=== PATIENT | female | born 1940 | race Caucasian/White ===

== ENCOUNTER → 2018-02-15 12:50 | Outpatient (CLI) | payer MEDICARE, OTHER | END | disposition home or self-care (01) | LOC: D.MAMMO 09:45 | DX: Z12.31 Encounter for screening mammogram for malignant neoplasm of breast (principal) ==

== ENCOUNTER → 2018-03-23 23:44 | Outpatient (CLI) | payer MEDICARE, OTHER | END | disposition home or self-care (01) | LOC: D.MAMMO 03-04 14:30 → D.US 03-05 08:00 → D.MAMMO 10:00 | DX: R92.8 Other abnormal and inconclusive findings on diagnostic imaging of breast (principal) ==

== ENCOUNTER → 2018-08-10 13:16 | Outpatient (CLI) | payer MEDICARE, OTHER | END | disposition home or self-care (01) | LOC: D.RAD 13:16 | DX: J20.9 Acute bronchitis, unspecified (principal) ==

== ENCOUNTER → 2018-12-13 10:55 | Outpatient (CLI) | payer MEDICARE, OTHER | END | disposition home or self-care (01) | LOC: D.CT 10:55 | DX: R93.89 Abnormal findings on diagnostic imaging of other specified body structures (principal) ==